=== PATIENT | female | born 1945 | race Caucasian/White ===

== ENCOUNTER 2017-01-08 09:14 | Outpatient (CLI) | payer MEDICARE, OTHER ==
[~2017-01-08] VITALS: Ht 154.9 cm; Wt 57.7 kg
[~2017-01-08 09:14] MED LIST: CALCIUM 600+D T1 TA1 PO; KRILL OIL PO; L-LYSINE500 M1 PO; MELATONIN 10 M1 EACH PO; MULTI-DAY VITAM1 TAB PO; OMEPRAZOLE20 M1 PO; PEPCID20 MG PO; VITAMIN C1000 MG PO; VITAMIN E400 UNI2 PO
[2017-01-08 09:45] VITALS: BP 133/82; Ht 154.9 cm; Wt 57.7 kg
== END 2017-01-08 09:55 | disposition home or self-care (01) ==
LOC: D.OPS 09:14
DX: M81.0 Age-related osteoporosis without current pathological fracture (principal)

== ENCOUNTER → 2017-04-09 16:42 | Outpatient (CLI) | payer MEDICARE, OTHER ==
[2017-01-08 09:45] VITALS: BMI 24.0
== END | disposition home or self-care (01) ==
LOC: D.MAMMO 15:00
DX: Z12.31 Encounter for screening mammogram for malignant neoplasm of breast (principal)

== ENCOUNTER 2018-04-27 21:00 | Outpatient (CLI) | payer MEDICARE, OTHER ==
[2017-01-08 09:45] VITALS: BMI 24.0
== END 2018-04-27 23:59 | disposition home or self-care (01) ==
LOC: D.MAMMO 21:00
DX: Z12.31 Encounter for screening mammogram for malignant neoplasm of breast (principal)

== ENCOUNTER 2019-06-09 09:00 | Outpatient (CLI) | payer MEDICARE, OTHER ==
[2017-01-08 09:45] VITALS: BMI 24.0
== END 2019-06-09 10:00 | disposition home or self-care (01) ==
LOC: D.MAMMO 09:00
PROVIDERS: ATTEND Family Medicine
DX: Z12.31 Encounter for screening mammogram for malignant neoplasm of breast (principal)

== ENCOUNTER 2020-10-19 06:25 | Day surgery (SDC) | payer MEDICARE, OTHER ==
[~2020-10-19] VITALS: Ht 157.5 cm; Wt 55.3 kg
[~2020-10-19 06:25] MED LIST changes: +NAPROSYN500 MG PO
[2020-10-19 07:09] LABS: BASOPHILS 0.4 % (0-2); EOSINOPHILS 0.9 % (0-7); HEMATOCRIT 38.2 % (36.0-48.0); HEMOGLOBIN 12.5 g/dL (12-16); IMMATURE GRANULOCYTES 0.2 % (0-5); LYMPHOCYTE ABS# 1.52 10x3/uL (1.18-3.74); LYMPHOCYTES 28.5 % (15-50); MCH 33.2 pg (26.0-34.0); MCHC 32.7 g/dL (31.0-37.0); MCV 101.6 fL (80.0-100.0); NEUTROPHIL ABS# 3.26 10x3/uL (1.56-6.13); PLATELET COUNT 279 10x3/uL (130-400); RBC 3.76 10x6/uL (4.00-5.40); RDW 12.1 % (11.5-14.5); WBC 5.3 10x3/uL (4.8-10.8)
[2020-10-19 07:44] LABS: CALC OSMOLALITY 282 mosm/kg (275-300); CALCIUM 9.4 mg/dL (8.5-10.1); CHLORIDE - SERUM 106 mmol/L (98-107); CREATININE - SERUM 0.7 mg/dL (0.6-1.3); GLUCOSE 115 mg/dL (74-106); POTASSIUM - SERUM 3.8 mmol/L (3.5-5.1); SODIUM 142 mmol/L (136-145); UREA NITROGEN 10 mg/dL (7-18); eGFR NON AFRICAN AMERICAN 87 mL/min (90-120)
[2020-10-19 08:19] VITALS: BP 126/66; Ht 157.5 cm; Wt 55.3 kg
[2020-10-19] MEDS ORDERED: HYDROCODON-ACE1 EA10 PO (10:03)
--- NOTE | 2020-10-19 14:51 | OP ---
PATIENT NAME: PAUL MAYEN MEDICAL RECORD: [id number] :47 LOCATION:[facility] ADMISSION DATE: SURGEON: JORDI DOWNEY MD DATE OF OPERATION: 10/19/2020 PREOPERATIVE DIAGNOSES: 1. Gallstones. 2. Osteoporosis. POSTOPERATIVE DIAGNOSES: 1. Gallstones. 2. Osteoporosis. PROCEDURE: Laparoscopic cholecystectomy. SURGEON: Jordi Downey MD DESCRIPTION OF PROCEDURE: The patient's abdomen was prepped and draped in sterile fashion. A cutdown was made on the superior aspect of the umbilicus, 0 Vicryls were placed in the fascia bilaterally and the fascia was incised with a 15 blade. I then bluntly entered the peritoneal cavity and placed a 12-mm Santa port. Under direct visualization, a 5-mm trocar was placed in the epigastrium and two more 5-mm trocars were placed in the right subcostal region. The gallbladder was grasped and elevated. There was some chronic inflammatory adhesions present and these were teased down carefully with blunt dissection. The cystic artery and cystic duct were dissected free and there was clipped proximally and distally and ligated in standard fashion. The gallbladder was taken off the liver bed using electrocautery and placed into the right upper quadrant. Any bleeding from the liver bed was then treated with electrocautery. The ports and insufflation were then removed and the gallbladder was taken out through the umbilicus. The umbilical fascia was closed with interrupted 0 Vicryls times 3. The wounds were then irrigated out with normal saline and infused with 10 mL of 0.25% Marcaine with epinephrine. The skin incisions were closed with subcutaneous 5-0 Monocryl and dressed appropriately. COMPLICATIONS: None. CONDITION: Stable. ANESTHESIA: General endotracheal and local. BLOOD LOSS: Minimal. TRANSINT:[id number] Voice Confirmation ID: [id number] DOCUMENT ID: [id number] JORDI DOWNEY MD at 1451 CC: REED MOSS APN [id number] DICTATION DATE: 10/19/20 1008 DIE SINKER APPRENTICE: 10/19/20 1143 [facility] [address] [id number]
--- NOTE | 2020-10-19 16:03 | NUR ---
IV D/C'D WITH CANNUL INTACT, PRESSURE HELD AND DRSG PLACED. DISCHARGE INSTRUCTIONS GIVEN AND PT VERBALIZED AN UNDERSTANDING
== END 2020-10-19 12:20 | disposition home or self-care (01) ==
LOC: D.OPS 06:25
PROVIDERS: ATTEND Surgery
DX: K80.20 Calculus of gallbladder without cholecystitis without obstruction (principal); M81.0 Age-related osteoporosis without current pathological fracture